=== PATIENT | female | born 1955 | race Caucasian/White ===

== ENCOUNTER 2016-05-12 13:27 | Outpatient (CLI) ==
--- NOTE | 2016-05-12 14:31 | DI ---
EXAM: Two views of the right hip HISTORY: Right hip pain with pain for 3 weeks. COMPARISON: None FINDINGS: The right hip demonstrates no cortical irregularity or displaced fracture. There is no ly tic or blastic lesion. The joint space is maintained. Limited views of the pelvis are normal. IMPRESSION: No acute abnormality or displaced fracture of the right hip.
== END 2016-05-12 13:28 | disposition home or self-care (01) ==
LOC: RAD 13:27
PROVIDERS: ATTEND Internal Medicine
DX: M25.551 Pain in right hip (principal)

== ENCOUNTER 2017-07-24 09:05 | Inpatient (IN) ==
--- NOTE | 2017-07-24 09:39 | CT ---
Exam: CT of the chest without intravenous contrast. Comparison: None available. Reason for exam: Cough and fever. FINDINGS: Image interpretation is limited by the lack of intravenous contrast administration. An air-fluid level is seen in the left maxillary sinus. The thyroid gland appears mildly heterogeneous. Patchy ground-glass nodularity is seen in the right upper, left upper, right middle lobes. The aorta is normal in course and caliber. The heart is not enlarged. No pneumothorax or pleural effusion. Degenerative disease is seen in the lower cervical and thoracic spine. Impression: 1. Patchy ground-glass nodularity in the right upper, left upper and right middle lobes. Imaging fin dings are consistent with infection and inflammation. Follow-up imaging is recommended to document r esolution. 2. Air-fluid level left maxillary sinus may represent sinus disease. 3. The thyroid gland is mildly heterogeneous. Ultrasound may be performed for further characterizat ion.
[2017-07-24] MEDS ORDERED: ROCEPHIN 1 GM in SODIUM CHLORIDE 50 ML IV STA ×2 (09:41→10:11)
[2017-07-24] MEDS ORDERED: ROCEPHIN ONE (09:45)
--- NOTE | 2017-07-24 09:45 | ED.PDOC ---
General ED Provider: Dr. GRAHAM GERMAIN-ER Chief Complaint: Fever Stated Complaint: i had some resp problems and dr dyer put my on antbx--im still coughing and congested and running a fever Time Seen by Physician: 09:10 Mode of Arrival: Walk-In Information Source: Patient, Family Exam Limitations: No limitations Primary Care Provider: BARB DYER Nursing and Triage Documentation Reviewed and Agree: Yes Reviewed sepsis parameters & appropriate labs ordered?: Yes System Inflammatory Response Syndrome: Not Applicable Sepsis Protocol: For patient's 13 years and over: Temp is 96.8 and below OR 101 and greater Pulse >90 BPM Resp >20/minute Acutely Altered Mental Status Are patient's symptoms suggestive of a new infection, such as: -Pneumonia -Skin, Soft Tissue -Endocarditis -UTI -Bone, Joint Infection -Implantable Device -Acute Abdominal Infection -Wound Infection -Meningitis -Blood Stream Catheter Infection -Unknown Respiratory Complaint Exam - Respiratory Complaint/Exam Onset/Duration: 2 weeks Symptoms Are: Still present Timing: Intermittent Initial Severity: Mild Current Severity: Mild Location: Nose, Chest Character: Reports: Productive cough Aggravating: Reports: URI Associated Signs and Symptoms: Reports: Fever, Chills, URI, Nasal congestion. Denies: Rapid breathing, Dyspnea, Chest pain, Pleuritic chest pain, Wheezing, Hemoptysis, Dizziness, Calf pain, Calf swelling, Edema, Hoarseness, Sinus discomfort, Vomiting, Sore throat, Weight loss, Decreased oral intake, Increased thirst, Increased appetite, Increased urination Related History: Reports: Similar episode History of Healthcare-Acquired Pneumonia: No Pseudomonas Risk Factors: Reports: None Tuberculosis Risk Factors: Reports: None Status Asthmaticus Risk Factors: Reports: None Home Oxygen Use: No Recent Stress Test: No Recent Echo/LV Function: No Current Antibiotic Use: No Current Asthma Medication Use: No Respiratory Distress: None Inadequate Respiratory Effort: No Dysphagia Present: No Stridor Present: No JVD Present: No Accessory Muscle Use: No Retractions: Not Present Diminished Breath Sounds: No Sinus Tenderness: None Grunting Respirations: No Kussmaul Respirations: No Differential Diagnoses: Pneumonia, Bronchitis Quality Indicators For Pneumonia: Blood Cultures-SCU admit, Antibiotics in 6hr- admit, SpO2 assessed, Empiric Antibiotic Rx, Vital signs, Mental status assessed Non-Traumatic Chest Pain Syncope: EKG Performed Review of Systems - Review Of Systems Constitutional: Reports: Chills, Fever, Weakness Eyes: Reports: No symptoms Ears, Nose, Mouth, Throat: Reports: No symptoms Respiratory: Reports: Cough, Short of air Cardiac: Reports: No symptoms GI: Reports: No symptoms : Reports: No symptoms Musculoskeletal: Reports: No symptoms Skin: Reports: No symptoms Neurological: Reports: No symptoms Endocrine: Reports: No symptoms Hematologic/Lymphatic: Reports: No symptoms All Other Systems: Reviewed and Negative Past Medical History - Past Medical History Previously Healthy: No Endocrine: Reports: Unknown Cardiovascular: Reports: Unknown Respiratory: Reports: Unknown Hematological: Reports: Unknown Gastrointestinal: Reports: Unknown Genitourinary: Reports: Unknown Neuro/Psych: Reports: Unknown Musculoskeletal: Reports: Unknown Cancer: Reports: Unknown Last Menstrual Period: n/a - Surgical History General Surgical History: Reports: Unknown - Family History Family History: Reports: Unknown - Social History Smoking Status: Former smoker Hx Substance Use: No Alcohol Screening: None Lives: With family - Immunizations Tetanus Shot up to Date: Yes Physical Exam - Physical Exam Appearance: Well-appearing Eyes: RAVI ENT: Ears normal, Nose normal, Oropharynx normal Neck: Supple Respiratory: Crackles, Rhonchi Cardiovascular: RRR, Pulses normal, No rub, No murmur GI/: Soft Musculoskeletal: Normal strength Skin: Warm Neurological: Sensation intact Psychiatric: Affect appropriate, Mood appropriate Interpretation - Radiology Interpretation Radiology Interpretation By: Radiologist Radiology Results: Positive Exam Interpreted: CT Scan - EKG Interpretation Time of EKG #1: 09:46 Rate: Normal Rhythm: Sinus Ectopy: None [place]: NL ST Segment: Normal Interpretation: nsr Physician Notification - Case Discussed Physician Notified: dr dyer Time of Notification: 10:04 Critical Care Note - Critical Care Note Total Time (mins): 0 Course - Course Hematology/Chemistry: 07/24/17 09:30 07/24/17 09:30 Orders, Labs, Meds: Lab Review 07/24/17 07/24/17 07/24/17 09:18 09:30 09:30 WBC 13.77 H RBC 3.89 L Hgb 12.4 Hct 37.3 MCV 95.9 MCH 31.9 H MCHC 33.2 RDW Coeff of Nabeel 12.2 Plt Count 304 Immature Gran % (Auto) 0.5 Neut % (Auto) 83.8 Lymph % (Auto) 8.8 L [place] % (Auto) 6.4 Eos % (Auto) 0.3 Baso % (Auto) 0.2 Immature Gran # (Auto) 0.1 Neut # (Auto) 11.5 H Lymph # (Auto) 1.2 [place] # (Auto) 0.9 Eos # (Auto) 0.0 Baso # (Auto) 0.0 Puncture Site Rb O2 Saturation 95.0 ABG pH 7.451 H ABG pCO2 32.5 L ABG pO2 70.0 L ABG HCO3 22.6 ABG Total CO2 24 ABG Base Excess -1 FiO2 % 21.0 Sodium 139 Potassium 3.6 Chloride 103 Carbon Dioxide 22 L Anion Gap 17.6 BUN 11 Creatinine 0.77 Estimated GFR (MDRD) 76.00 BUN/Creatinine Ratio 14.28 Glucose 116 H Calcium 10.1 Total Bilirubin 1.0 AST 46 H ALT 65 Alkaline Phosphatase 108 Total Protein 8.3 H Albumin 3.3 L Globulin 5.0 Albumin/Globulin Ratio 0.66 Influ A Molecular Assay Influ B Molecular Assay 07/24/17 09:35 WBC RBC Hgb Hct MCV MCH MCHC RDW Coeff of Nabeel Plt Count Immature Gran % (Auto) Neut % (Auto) Lymph % (Auto) [place] % (Auto) Eos % (Auto) Baso % (Auto) Immature Gran # (Auto) Neut # (Auto) Lymph # (Auto) [place] # (Auto) Eos # (Auto) Baso # (Auto) Puncture Site O2 Saturation ABG pH ABG pCO2 ABG pO2 ABG HCO3 ABG Total CO2 ABG Base Excess FiO2 % Sodium Potassium Chloride Carbon Dioxide Anion Gap BUN Creatinine Estimated GFR (MDRD) BUN/Creatinine Ratio Glucose Calcium Total Bilirubin AST ALT Alkaline Phosphatase Total Protein Albumin Globulin Albumin/Globulin Ratio Influ A Molecular Assay Negative by naat Influ B Molecular Assay Negative by naat Orders Category Date Time Status ABG DRAW REQUEST Stat CARDIO 07/24/17 09:18 Completed EKG-(ED ONLY) Stat CARDIO 07/24/17 09:18 Completed IV [ED IV/MEDIPORT/POWERPORT] .ONCE EMERGENCY 07/24/17 09:41 Active OXYGEN [ED APPLY O2] .ONCE EMERGENCY 07/24/17 09:59 Active ABG Stat LAB 07/24/17 09:18 Completed BLOOD CULTURE (ED ONLY) Stat LAB 07/24/17 09:30 Received CBC W/ AUTO DIFF Stat LAB 07/24/17 09:30 Completed COMPREHENSIVE METABOLIC PANEL Stat LAB 07/24/17 09:30 Completed FLU A/B MOLECULAR Stat LAB 07/24/17 09:35 Completed 0.9 % Sodium Chloride [Saline Flush] MEDS 07/24/17 09:41 Active 1 syr IVF PRN PRN Ceftriaxone Sodium [Rocephin] MEDS 07/24/17 09:45 Discontinued 1 gm .ROUTE .STK-MED ONE Ceftriaxone Sodium [Rocephin] 1 gm MEDS 07/24/17 09:41 Active 0.9 % Sodium Chloride [Sodium Chloride] [address] CHEST W/O CONTRAST Stat RADS 07/24/17 09:18 Completed Medications Generic Name Dose Route Start Last Admin Trade Name Freq PRN Reason Stop Dose Admin Ceftriaxone Sodium 1 gm/ 50 mls @ 75 mls/hr 07/24/17 09:41 07/24/17 09:57 Sodium Chloride IV 07/24/17 10:20 75 mls/hr ONCE STA Administration Sodium Chloride 1 syr 07/24/17 09:41 Saline Flush IVF PRN PRN To flush IV Vital Signs: Temp Pulse Resp BP Pulse Ox 07/24/17 09:05 98.7 F 105 H 20 143/110 H 90 L Departure - Departure Time of Disposition: 10:04 Disposition: ADMITTED INPATIENT Discharge Problem: Community acquired bacterial pneumonia Instructions: Pneumonitis (ED) Condition: Good Pt referred to PMD for follow-up: Yes IPMP verified?: No Allergies/Adverse Reactions: Allergies No Known Allergies Allergy (Verified 07/24/17 09:11) Home Medications: Ambulatory Orders 1 [No Reported Medications] 07/24/17 Disposition Discussed With: Patient, Family
[2017-07-24] MEDS ORDERED: TYLENOL PO PRN (10:06)
[2017-07-24] MEDS ORDERED: TESSALON PERLES PO PRN (10:10)
[2017-07-24] MEDS: DUONEB NEB SCH ×2 (11:17→17:03)
[2017-07-24 12:27] VITALS: BMI 22.3
[2017-07-24] MEDS: MUCINEX PO SCH ×2 (15:14→20:32)
[2017-07-24] MEDS: LOVENOX SUBCUT SCH (15:15)
[2017-07-24] MEDS: DOXY-100 100 MG in SODIUM CHLORIDE 100 ML IV SCH ×2 (15:19→20:32)
[2017-07-24] MEDS: SODIUM CHLORIDE 1,000 ML IV SCH (15:19)
[2017-07-24] MEDS: SOLU-MEDROL 40 MG IVP SCH ×2 (15:26→21:32)
[2017-07-24] MEDS ORDERED: NORCO 7.5-325 ONE (20:08)
[2017-07-24] MEDS ORDERED: NON-FORMULARY MEDICATION (Hydrocodone Bit/Acetaminophen 1 TAB) PO SCH (21:00)
[2017-07-25] MEDS: DUONEB NEB SCH ×5 (00:53→23:30)
[2017-07-25] MEDS: ROCEPHIN 1 GM in SODIUM CHLORIDE 50 ML IV SCH (09:22)
[2017-07-25] MEDS: SOLU-MEDROL 40 MG IVP SCH ×2 (09:25→20:42)
[2017-07-25] MEDS: MUCINEX PO SCH ×2 (09:25→20:41)
[2017-07-25] MEDS: LEXAPRO PO SCH (09:26)
[2017-07-25] MEDS: NORCO 7.5-325 PO SCH ×2 (09:26→20:41)
[2017-07-25] MEDS: ZOCOR PO SCH (09:26)
[2017-07-25] MEDS: LOVENOX SUBCUT SCH (09:26)
[2017-07-25] MEDS: DOXY-100 100 MG in SODIUM CHLORIDE 100 ML IV SCH ×2 (10:12→20:41)
[2017-07-25] MEDS ORDERED: TORADOL IVP PRN (17:40)
[2017-07-25] MEDS: SODIUM CHLORIDE 1,000 ML IV SCH (20:45)
[2017-07-26] MEDS: DUONEB NEB SCH ×4 (05:20→23:25)
[2017-07-26] MEDS: ROCEPHIN 1 GM in SODIUM CHLORIDE 50 ML IV SCH (09:47)
[2017-07-26] MEDS: LEXAPRO PO SCH (09:47)
[2017-07-26] MEDS: ZOCOR PO SCH (09:49)
[2017-07-26] MEDS: SOLU-MEDROL 40 MG IVP SCH ×2 (09:50→20:28)
[2017-07-26] MEDS: NORCO 7.5-325 PO SCH ×2 (09:51→20:28)
[2017-07-26] MEDS: LOVENOX SUBCUT SCH (09:51)
[2017-07-26] MEDS: MUCINEX PO SCH ×2 (09:51→20:28)
--- NOTE | 2017-07-26 10:07 | PCM.PROG ---
Attending Provider: ATTENDING PROVIDER: Dr. BARB LARIOS This patient is seen with Luci Stark, Nurse Practitioner. DATE OF SERVICE: 07/26/17 SUBJECTIVE: This 61 year old WHITE/ F was hospitalized 07/24/17. The patient is sitting in bed, alert. She would like to go home. She is still coughing. REVIEW OF SYSTEMS: CONSTITUTIONAL: No night sweats. No fatigue, malaise, lethargy. No fever or chills. HEENT: Eyes: No visual changes. No eye pain. No eye discharge. ENT: No runny nose. No epistaxis. No sinus pain. No odynophagia. No congestion. RESPIRATORY: Positive for cough and congestion. No hemoptysis. No shortness of breath. CARDIOVASCULAR: No angina symptoms. No CHF symptoms. No atypical chest pain for CAD. No palpitations. No orthopnea.. GASTROINTESTINAL: No abdominal pain. No nausea or vomiting. No diarrhea or constipation. No hematemesis. No hematochezia. GENITOURINARY: No urgency. No frequency. No dysuria. No hematuria. No obstructive symptoms. No discharge. No pain. No significant abnormal bleeding. MUSCULOSKELETAL: No musculoskeletal pain; no joint swelling. NEUROLOGICAL: Awake, alert, oriented to time, place and person. No headache. No neck pain. No syncope. No seizures. No dizziness. PSYCHIATRIC: Not anxious. No depression. No suicidal thoughts. No homicidal thoughts. SKIN: No rash. No lesions. No wounds. ENDOCRINE: No unexplained weight loss. No weight gain. HEMATOLOGIC/LYMPHATIC: No anemia. No purpura. No petechiae. No prolonged or excessive bleeding. No palpable lymph nodes. PHYSICAL EXAMINATION: GENERAL: The patient is awake, alert and oriented, sitting in bed in no distress. VITAL SIGNS: Temperature 98.5 F, Pulse 93, Respiratory Rate 20, BP 126/73, Pulse Ox 93% HEENT: Head normocephalic, atraumatic. Eyes: Extraocular muscles are intact. Pupils are equal, round and reactive to light and accommodation. Ears: No lesions. Nose appeared normal. Throat: No exudate or erythema. NECK: Supple. No JVD, no carotid bruit. No lymphadenopathy or thyromegaly. LUNGS: Rales bilaterally. Percussion note normal. Chest symmetrical. HEART: S1, S2, no S3. No murmurs. No cyanosis or clubbing. No ascites. Pulses: Dorsalis pedis and posterior tibial pulses +1 to +2 both sides. ABDOMEN: Soft. Non-tender. Bowel sounds active. No CVA tenderness. No mass felt. EXTREMITIES: No edema. Full range of motion of all extremities, equal. NEUROLOGIC: No focal deficit. Cranial nerves II through XII are grossly intact. No headache, no double vision or headache. SKIN: Not dry. Intact. Turgor-normal. LYMPHATIC: No palpable lymph nodes/no lymphedema. MUSCULOSKELETAL: Normal joints with no swelling. Muscle tone is normal. LAB REVIEW: 07/26/17 04:30 07/26/17 04:30 07/26/17 04:30: Sodium 144, Potassium 4.4, Chloride 110 H, Carbon Dioxide 21 L, Anion Gap 17.4, BUN 21 H, Creatinine 0.72, Estimated GFR (MDRD) 83.00, BUN/ Creatinine Ratio 29.16, Glucose 134 H, Calcium 9.7, Total Bilirubin 0.2, AST 26 , ALT 47, Alkaline Phosphatase 97, Total Protein 6.7, Albumin 2.7 L, Globulin 4.0, Albumin/Globulin Ratio 0.68 07/26/17 04:30: WBC 16.93 H D, RBC 3.28 L, Hgb 10.5 L, Hct 31.9 L, MCV 97.3, MCH 32.0 H, MCHC 32.9, RDW Coeff of Nabeel 12.3, Plt Count 278 D, Immature Gran % (Auto) 0.8, Neut % (Auto) 91.9, Lymph % (Auto) 5.0 L, [place] % (Auto) 2.2, Eos % ( Auto) 0.0, Baso % (Auto) 0.1, Immature Gran # (Auto) 0.1, Neut # (Auto) 15.5 H, Lymph # (Auto) 0.9, [place] # (Auto) 0.4, Eos # (Auto) 0.0, Baso # (Auto) 0.0 ASSESSMENT: 1. BILATERAL PNEUMONIA 2. ANEMIA 3. ELEVATED PROTEIN WITH LOW ALBUMIN PLAN: 1. REPEAT CHEST X-RAY 2. PROTEIN FOR ELECTROPHORESIS IN URINE FOR BENCE-LOZANO PROTEIN IN URINE Plan and coordination of the patient's care discussed in the presence of Plate Painter and nurse. CONDITION: Stable SCRIBED BY: BARBY PAUL, Armored Machine Operator scribed while in presence of service performed by Dr. Larios/Luci Stark APRN on 07/26/17 ([id number])
[2017-07-26] MEDS: DOXY-100 100 MG in SODIUM CHLORIDE 100 ML IV SCH ×2 (11:14→20:27)
--- NOTE | 2017-07-26 15:10 | DI ---
EXAM: CHEST FRONTAL AND LATERAL VIEWS HISTORY: Pneumonia, follow-up. COMPARISON: None FINDINGS: Heart size and mediastinal contour remain within normal limits. There is diffuse, chroni c appearing interstitial accentuation. No acute infiltrates are seen. No vascular congestion. Ther e is no consolidation, visible pleural fluid or pneumothorax. Bones reveal no acute fracture. IMPRESSION: No acute cardiopulmonary process.
[2017-07-27] MEDS: DUONEB NEB SCH ×2 (05:05→11:12)
[2017-07-27] MEDS: SODIUM CHLORIDE 1,000 ML IV SCH (07:32)
[2017-07-27] MEDS: DOXY-100 100 MG in SODIUM CHLORIDE 100 ML IV SCH (08:48)
[2017-07-27] MEDS: SOLU-MEDROL 40 MG IVP SCH (08:48)
[2017-07-27] MEDS: NORCO 7.5-325 PO SCH (08:49)
[2017-07-27] MEDS: LEXAPRO PO SCH (08:49)
[2017-07-27] MEDS: ZOCOR PO SCH (08:49)
[2017-07-27] MEDS: MUCINEX PO SCH (08:49)
[2017-07-27] MEDS: LOVENOX SUBCUT SCH (08:50)
[2017-07-27 09:45] VITALS: BP 138/71; TEMP 97.6
[2017-07-27] MEDS: ROCEPHIN 1 GM in SODIUM CHLORIDE 50 ML IV SCH (10:31)
--- NOTE | 2017-07-27 11:00 | CM.DICTOOL ---
ADMISSION: 07/24/17 10:31 DISCHARGE: JULY 27, 2017 DATE OF SERVICE: 07/27/17 FINAL DIAGNOSIS COMMUNITY ACQUIRED PNEUMONIA, BILATERAL DYSLIPIDEMIA DEPRESSION OSTEOARTHRITIS DEGENERATIVE DISC DISEASE; CERVICAL AND THORACIC SPINE ANEMIA KIRA, BSO APPENDECTOMY LAMINECTOMY L5-S1 LAST VITALS Temp Pulse Resp BP Pulse Ox 97.6 F 85 14 138/71 96 07/27/17 09:45 07/27/17 09:45 07/27/17 09:45 07/27/17 09:45 07/27/17 09:45 TAKE THESE MEDICATIONS Hydrocodone Bitart/Acetaminophen ([place] 7.5-325) 1 tab PO BID [facility] Last Admin: 07/27/17 08:49 Dose: 1 tab Escitalopram Oxalate (Lexapro) 10 mg PO DAILY [facility] Last Admin: 07/27/17 08:49 Dose: 10 mg Simvastatin (Zocor) 40 mg PO DAILY [facility] Last Admin: 07/27/17 08:49 Dose: 40 mg Keflex 500 mg PO BID Last Admin: Doxycycline 50 mg PO BID Last Admin: Prednisone 10 mg PO DAILY Last Admin: ALLERGIES No Known Allergies Allergy (Verified 07/24/17 09:11) NEW PRESCRIPTIONS: Keflex 500 mg BID for 5 days Prednisone 10 mg DAILY for 5 days Doxycycline 50 mg BID for 7 days SMOKING: Not Applicable DISEASE SPECIFIC EDUCATION: Pneumonia Prescriptions Activity, Nutrition Outpatient testing/Appointment LAB REVIEW: 07/27/17 04:30 07/27/17 04:30 07/27/17 08:30: Vitamin B12 1321 H 07/27/17 08:30: Iron 53, TIBC 266, % Saturation 20, Unsat Iron Binding 213, Ferritin 93.84, Folate 17.0 07/27/17 08:30: Reticulocyte % (Auto) 1.48, Absolute Retic 0.0494, Retic Hgb Equivalent 33.5 07/27/17 04:30: Sodium 143, Potassium 4.2, Chloride 110 H, Carbon Dioxide 22 L, Anion Gap 15.2, BUN 17, Creatinine 0.70, Estimated GFR (MDRD) 85.00, BUN/ Creatinine Ratio 24.28, Glucose 116 H, Calcium 9.5, Total Bilirubin 0.3, AST 43 H, ALT 57, Alkaline Phosphatase 91, Total Protein 6.5, Albumin 2.8 L, Globulin 3.7, Albumin/Globulin Ratio 0.76 07/27/17 04:30: WBC 11.28 H D, RBC 3.26 L, Hgb 10.3 L, Hct 31.2 L, MCV 95.7, MCH 31.6 H, MCHC 33.0, RDW Coeff of Nabeel 12.3, Plt Count 274, Immature Gran % ( Auto) 0.5, Neut % (Auto) 87.2, Lymph % (Auto) 9.0 L, [place] % (Auto) 3.2, Eos % ( Auto) 0.0, Baso % (Auto) 0.1, Immature Gran # (Auto) 0.1, Neut # (Auto) 9.8 H, Lymph # (Auto) 1.0, [place] # (Auto) 0.4, Eos # (Auto) 0.0, Baso # (Auto) 0.0 PLAN: DISCHARGE HOME DIET: REGULAR TOLERATED, GOOD NUTRITION AND ADEQUATE LIQUIDS ARE ENCOURAGED ACTIVITY: GRADUALLY RESUME TOLERATED REST MUCH POSSIBLE TAKE MEDICATIONS LISTED ON NURSING DISCHARGE INFORMATION SHEET NO CHANGES HAVE BEEN MADE TO YOUR CURRENT HOME MEDICATIONS NO WORK UNTIL RELEASED BY DR. EDMOND AN APPOINTMENT IS SCHEDULED WITH DR. EDMOND ON JULY 29 AT 10:45 AM AN APPOINTMENT IS SCHEDULED FOR AN OUTPATIENT PULMONARY FUNCTION TEST ON TuesdayAUGUST 02 AT 9 AM MRS. CORONEL IS ALERT AND ORIENTED X 3. SHE IS INDEPENDENT WITH ACTIVITIES OF DAILY LIVING. SHE IS AMBULATORY WITHOUT USE OF AN ASSISTIVE DEVICE OR ASSISTANCE FROM NURSING. SHE IS CONTINENT OF BOWEL AND BLADDER. MEAL INTAKES HAVE BEEN GOOD AT 15-100%. COLORING IS PALE, BUT SKIN IS INTACT AND FREE OF DECUBITUS ULCERS, RASHES OR IRRITATION. MRS. CORONEL HAS NO EXISTING DURABLE MEDICAL EQUIPMENT AT HOME. BARB EDMOND MD
--- NOTE | 2017-07-27 11:44 | PCM.PROG ---
Attending Provider: ATTENDING PROVIDER: Dr. BARB EDMOND DATE OF SERVICE: 07/27/17 SUBJECTIVE: This 61 year old WHITE/ F was hospitalized 07/24/17 with pneumonia. The patient's condition is improved. She is up and about. Coughing is much less. Chest x-ray normal. REVIEW OF SYSTEMS: CONSTITUTIONAL: Weakness. No night sweats. No malaise, lethargy. No fever or chills. HEENT: Eyes: No visual changes. No eye pain. No eye discharge. ENT: No runny nose. No epistaxis. No sinus pain. No odynophagia. No congestion. RESPIRATORY: Mild cough. No congestion. No hemoptysis. No shortness of breath. CARDIOVASCULAR: No angina symptoms. No CHF symptoms. No atypical chest pain for CAD. No palpitations. No orthopnea.. GASTROINTESTINAL: No abdominal pain. No nausea or vomiting. No diarrhea or constipation. No hematemesis. No hematochezia. GENITOURINARY: No urgency. No frequency. No dysuria. No hematuria. No obstructive symptoms. No discharge. No pain. No significant abnormal bleeding. MUSCULOSKELETAL: No musculoskeletal pain; no joint swelling. NEUROLOGICAL: Awake, alert, oriented to time, place and person. No headache. No neck pain. No syncope. No seizures. No dizziness. PSYCHIATRIC: Not anxious. No depression. No suicidal thoughts. No homicidal thoughts. SKIN: No rash. No lesions. No wounds. ENDOCRINE: No unexplained weight loss. No weight gain. HEMATOLOGIC/LYMPHATIC: No anemia. No purpura. No petechiae. No prolonged or excessive bleeding. No palpable lymph nodes. PHYSICAL EXAMINATION: GENERAL: The patient is awake, alert and oriented, sitting in bed in no distress. VITAL SIGNS: Temperature 98.6 F, Pulse 78, Respiratory Rate 16, BP 130/79, Pulse Ox 94% HEENT: Head normocephalic, atraumatic. Eyes: Extraocular muscles are intact. Pupils are equal, round and reactive to light and accommodation. Ears: No lesions. Nose appeared normal. Throat: No exudate or erythema. NECK: Supple. No JVD, no carotid bruit. No lymphadenopathy or thyromegaly. LUNGS: Decreased breath sounds. Clear to auscultation. Percussion note normal. Chest symmetrical. HEART: S1, S2, no S3. No murmurs. No cyanosis or clubbing. No ascites. Pulses: Dorsalis pedis and posterior tibial pulses +1 to +2 both sides. ABDOMEN: Soft. Non-tender. Bowel sounds active. No CVA tenderness. No mass felt. EXTREMITIES: No edema. Full range of motion of all extremities, equal. NEUROLOGIC: No focal deficit. Cranial nerves II through XII are grossly intact. No headache, no double vision or headache. SKIN: Warm and dry. Intact. Turgor-normal. LYMPHATIC: No palpable lymph nodes/no lymphedema. MUSCULOSKELETAL: Normal joints with no swelling. Muscle tone is normal. LAB REVIEW: 07/27/17 04:30 07/27/17 04:30 07/27/17 04:30: Sodium 143, Potassium 4.2, Chloride 110 H, Carbon Dioxide 22 L, Anion Gap 15.2, BUN 17, Creatinine 0.70, Estimated GFR (MDRD) 85.00, BUN/ Creatinine Ratio 24.28, Glucose 116 H, Calcium 9.5, Total Bilirubin 0.3, AST 43 H, ALT 57, Alkaline Phosphatase 91, Total Protein 6.5, Albumin 2.8 L, Globulin 3.7, Albumin/Globulin Ratio 0.76 07/27/17 04:30: WBC 11.28 H D, RBC 3.26 L, Hgb 10.3 L, Hct 31.2 L, MCV 95.7, MCH 31.6 H, MCHC 33.0, RDW Coeff of Nabeel 12.3, Plt Count 274, Immature Gran % ( Auto) 0.5, Neut % (Auto) 87.2, Lymph % (Auto) 9.0 L, [place] % (Auto) 3.2, Eos % ( Auto) 0.0, Baso % (Auto) 0.1, Immature Gran # (Auto) 0.1, Neut # (Auto) 9.8 H, Lymph # (Auto) 1.0, [place] # (Auto) 0.4, Eos # (Auto) 0.0, Baso # (Auto) 0.0 ASSESSMENT: Please see below. 1. Pneumonia resolved by chest x-ray 2. Chronic lung disease (stopped smoking 10 years ago) 3. DJD spine history, on narcotics 4. Depression controlled with Lexapro 5. Dyslipidemia on Zocor with no side effects 6. Rhabdomyolysis. Discussed with the patient the symptoms The patient will have serum electrophoresis and Bence-Garcia because of abnormal protein. PLAN: 1. Anemia profile 2. PFT 3. Keflex 500 mg b.i.d. for 5 days 4. Doxycycline 50 mg one b.i.d. for 7 days 5. Prednisone 10 mg daily times 5 days 6. Discharge home 7. Will see in office on Tuesday, no work until released by Dr. Edmond Plan and coordination of the patient's care discussed in the presence of Production Administrative Assistant and nurse. CONDITION: Stable SCRIBED BY: BARBY PAUL Bolt Sorter scribed while in presence of service performed by Dr. BARB EDMOND on 07/27/17 ([id number])
--- NOTE | 2017-07-27 13:38 | HP ---
DATE OF SERVICE: 07/24/17 HISTORY OF PRESENT ILLNESS: 61-year-old white female who is a long-term smoker. She had called to the office last week for cough and congestion, was placed on oral antibiotics and Prednisone. She presented and claims to have been running a fever off and on for one week and still congested. PAST MEDICAL HISTORY: Osteoarthritis Degenerative disk disease Dyslipidemia History of smoking Anxiety Depression PAST SURGICAL HISTORY: No past surgical history to report. REVIEW OF SYSTEMS: CONSTITUTIONAL: Positive for fever, chills. No night sweats. No fatigue, malaise, lethargy. HEENT: Eyes: No visual changes. No eye pain. No eye discharge. ENT: No runny nose. No epistaxis. No sinus pain. No sore throat. No odynophagia. No ear pain. No congestion. RESPIRATORY: Positive for cough, wheezing, congestion. No hemoptysis. No shortness of breath. CARDIOVASCULAR: No angina symptoms. No CHF symptoms. No atypical chest pain for CAD. No palpitations. No orthopnea. GASTROINTESTINAL: No abdominal pain. No nausea or vomiting. No diarrhea or constipation. No hematemesis. No hematochezia. GENITOURINARY: No urgency. No frequency. No dysuria. No hematuria. No obstructive symptoms. No discharge. No pain. No significant abnormal bleeding. MUSCULOSKELETAL: No musculoskeletal pain. No joint swelling. No arthritis. NEUROLOGICAL: No headache. No neck pain. No syncope. No seizures. No dizziness. PSYCHIATRIC: Not anxious. No depression. No suicidal thoughts. No homicidal thoughts. SKIN: No rash. No lesions. No wounds. ENDOCRINE: No unexplained weight loss. No weight gain. HEMATOLOGIC/LYMPHATIC: No anemia. No purpura. No petechiae. No prolonged or excessive bleeding. No palpable lymph nodes. PERSONAL/FAMILY/SOCIAL HISTORY: Family history - none significant. Social History: She is a former smoker. She lives at home with her family. She has a disabled son with cerebral palsy that she helps take care of. She is . No alcohol or ilicit drug use. She currently still works at the [employer]. MEDICATIONS: (AT DISCHARGE) Simvastatin 40 mg p.o. daily Escitaloprim 10 mg one tab p.o. daily Lortab 7.5-500 one tab p.o. b.i.d. Keflex 500 mg p.o. b.i.d. Prednisone 10 mg p.o. daily with meal Doxycycline 50 mg p.o. b.i.d. ALLERGIES: NKDA PHYSICAL EXAMINATION: VITAL SIGNS: Temperature 98.5, pulse 100, BP 111/73, respiratory rate 20, 02 sat 97% on room air. HEENT: Head normocephalic, atraumatic. Eyes: Extraocular muscles are intact. Pupils are equal, round and reactive to light and accommodation. Ears: No lesions. Nose appeared normal. Throat: No exudate or erythema. NECK: Supple. No JVD, no carotid bruit. No lymphadenopathy or thyromegaly. LUNGS: Dimnished breath sounds bilaterally with wheezing bilaterally. Clear to auscultation. Percussion note normal. Chest symmetrical. HEART: S1, S2, no S3. No murmurs. No cyanosis or clubbing. No ascites. Pulses: Dorsalis pedis and posterior tibial pulses +1 to +2 both sides. ABDOMEN: Soft. Nontender. Bowel sounds active. No CVA tenderness. No mass felt. EXTREMITIES: No edema. Full range of motion of all extremities, equal. NEUROLOGIC: No focal deficit. Cranial nerves II through XII are grossly intact. No headache, no double vision or headache. SKIN: Not dry. Intact. Turgor - normal. LYMPHATIC: No palpable lymph nodes/no lymphedema. MUSCULOSKELETAL: Normal joints with no swelling. Muscle tone is normal. CT scan of the chest revealed right upper and right middle as well as left upper lobe pneumonia. White count 13.77, hemoglobin 12.4, hematocrit 37.3, platelets 304. Sodium 139, potassium 3.6, BUN 11, creatinine 0.77, glucose 116. ABGs on room air 02 sat 95, pH 7.451, pc02 32.5, p02 70, bicarb 22.6, total c02 24, base excess of +1. AST 46, ALT 65, alkaline phoshatase 108. Influenza A and B are both negative. ASSESSMENT: 1. BILATERAL PNEUMONIA 2. COPD PLAN: 1. Admit 2. Blood cultures 3. Routine telemetry orders 4. Xopenex neb treatments q.6hr p.r.n. 5. Tylenol as needed for fever 6. Continue home medications 7. Rocephin 1 gm IV daily 8. Doxycycline 100 mg IV q.12hr 9. Normal Saline IV 40 cc/hr 10. Solu-Medrol 40 mg IV q.12hr 11. Tessalon Perles as needed t.i.d. for coughing 12. 02 as needed. 13. Regular diet 14. Will follow closely TIME SPENT: More than 70 minutes. MTDD
--- NOTE | 2017-08-01 09:44 | PN ---
DATE OF SERVICE: 07/24/17 SUBJECTIVE: The patient was hospitalized through the emergency room with complaint of cough and congestion. The patient was treated with antibiotics steroids a week ago with practically no improvement. The patient continued to cough and now developed fever and chills. CT scan of the chest showed pneumonia. When I examined the patient in the evening around 6:30pm. the patient was feeling better. She has been antibiotics, steroids and NEBS treatment. PHYSICAL EXAMINATION: HEENT: Head normocephalic, atraumatic. Eyes: Extraocular muscles are intact. Pupils are equal, round and reactive to light and accommodation. Ears: No lesions. Nose appeared normal. Throat: No exudate or erythema. NECK: Supple. No JVD, no carotid bruit. No lymphadenopathy or thyromegaly. LUNGS: Decreased breath sounds with a few crepitations, dry at the bases. Percussion note normal. Chest symmetrical. HEART: S1, S2, no S3. No murmurs. No cyanosis or clubbing. No ascites. Pulses: Dorsalis pedis and posterior tibial pulses +1 to +2 both sides. ABDOMEN: Soft. Nontender. Bowel sounds active. No CVA tenderness. No mass felt. EXTREMITIES: No edema. Full range of motion of all extremities, equal. NEUROLOGIC: No focal deficit. Cranial nerves II through XII are grossly intact. No headache, no double vision or headache. SKIN: Not dry. Intact. Turgor - normal. LYMPHATIC: No palpable lymph nodes/no lymphedema. MUSCULOSKELETAL: Normal joints with no swelling. Muscle tone is normal. CONDITION: Stable. TIME SPENT: More than 30 minutes. Plan and coordination of the patient's care discussed in the presence of nurse. SHERIF
--- NOTE | 2017-08-03 07:44 | PN ---
DATE OF SERVICE: 07/25/17 SUBJECTIVE: The patient was seen and examined with Nurse Practitioner. The patient was admitted with pneumonia. The patient's pneumonia seems to be improving and she is up and about. The patient's condition is improving with antibiotics, steroids and NEBS treatment. REVIEW OF SYSTEMS: CONSTITUTIONAL: No night sweats. Weak and fatigue. No fever or chills. HEENT: Eyes: No visual changes. No eye pain. No eye discharge. ENT: No runny nose. No epistaxis. No sinus pain. No sore throat. No odynophagia. No congestion. RESPIRATORY: Coughing much less, no congestion. No hemoptysis. No shortness of breath. CARDIOVASCULAR: No angina symptoms. No CHF symptoms. No atypical chest pain for CAD. No palpitations. No orthopnea. GASTROINTESTINAL: No abdominal pain. No nausea or vomiting. No diarrhea or constipation. No hematemesis. No hematochezia. GENITOURINARY: No urgency. No frequency. No dysuria. No hematuria. No obstructive symptoms. No discharge. No pain. No significant abnormal bleeding. MUSCULOSKELETAL: No musculoskeletal pain; no joint swelling. NEUROLOGICAL: No headache. No neck pain. No syncope. No seizures. No dizziness. PSYCHIATRIC: Not anxious. No depression. No suicidal thoughts. No homicidal thoughts. SKIN: No rash. No lesions. No wounds. ENDOCRINE: No unexplained weight loss. No weight gain. HEMATOLOGIC/LYMPHATIC: No anemia. No purpura. No petechiae. No prolonged or excessive bleeding. No palpable lymph nodes. PHYSICAL EXAMINATION: HEENT: Head normocephalic, atraumatic. Eyes: Extraocular muscles are intact. Pupils are equal, round and reactive to light and accommodation. Ears: No lesions. Nose appeared normal. Throat: No exudate or erythema. NECK: Supple. No JVD, no carotid bruit. No lymphadenopathy or thyromegaly. LUNGS: Few crepitations at the bases. Percussion note normal. Chest symmetrical. HEART: S1, S2, no S3. No murmurs. No cyanosis or clubbing. No ascites. Pulses: Dorsalis pedis and posterior tibial pulses +1 to +2 both sides. ABDOMEN: Soft. Nontender. Bowel sounds active. No CVA tenderness. No mass felt. EXTREMITIES: No edema. Full range of motion of all extremities, equal. NEUROLOGIC: No focal deficit. Cranial nerves II through XII are grossly intact. No headache, no double vision or headache. SKIN: Not dry. Intact. Turgor - normal. LYMPHATIC: No palpable lymph nodes/no lymphedema. MUSCULOSKELETAL: Normal joints with no swelling. Muscle tone is normal. TIME SPENT: More than 30 minutes. Plan and coordination of the patient's care discussed in the presence of nurse. SHERIF
--- NOTE | 2017-08-03 07:56 | PN ---
DATE OF SERVICE: 07/26/17 SUBJECTIVE: The patient was seen and examined with Nurse Practitioner. PHYSICAL EXAMINATION: HEENT: Head normocephalic, atraumatic. Eyes: Extraocular muscles are intact. Pupils are equal, round and reactive to light and accommodation. Ears: No lesions. Nose appeared normal. Throat: No exudate or erythema. NECK: Supple. No JVD, no carotid bruit. No lymphadenopathy or thyromegaly. LUNGS: Decreased breath sounds with few creps. Clear to auscultation. Percussion note normal. Chest symmetrical. HEART: S1, S2, no S3. No murmurs. No cyanosis or clubbing. No ascites. Pulses: Dorsalis pedis and posterior tibial pulses +1 to +2 both sides. ABDOMEN: Soft. Nontender. Bowel sounds active. No CVA tenderness. No mass felt. EXTREMITIES: No edema. Full range of motion of all extremities, equal. NEUROLOGIC: No focal deficit. Cranial nerves II through XII are grossly intact. No headache, no double vision or headache. SKIN: Not dry. Intact. Turgor - normal. LYMPHATIC: No palpable lymph nodes/no lymphedema. MUSCULOSKELETAL: Normal joints with no swelling. Muscle tone is normal. PLAN: 1. Repeat the chest x-ray 2. The patient will be continued on antibiotics 3. The patient's albumin in high and globulin is low. Low protein electrophoresis and Bence-Garcia Protein in the urine. TIME SPENT: More than 30 minutes. Plan and coordination of the patient's care discussed in the presence of nurse. SHERIF
--- NOTE | 2017-08-03 08:09 | DS ---
DATE OF SERVICE: 07/27/17 FINAL DIAGNOSIS: 1. Community acquired pneumonia, bilateral 2. Dyslipidemia 3. Depression 4. Osteoarthritis 5. Degenerative disc disease, cervical and thoracic spine 6. Anemia 7. KIRA, BSO 8. Appendectomy 9. Laminectomy L5-S1 LAST VITALS: Temperature 97.6, pulse 85, respiratory rate 14, blood pressure 138/71 and pulse ox 96%. DISCHARGE INSTRUCTIONS: Discharge home. Take medications as listed on nursing discharge information sheet. No changes have been made to current home medications. No work until released by Dr. Larios. An appointment is scheduled with Dr. Larios on July 29 at 10:45am. An appointment is scheduled for outpatient pulmonary function test on August 02 at 9am. MEDICATIONS AT DISCHARGE: [place] 7.5-325 one tablet PO twice a day Lexapro 10mg Po daily Zocor 40mg Po daily Keflex 500mg PO twice a day Doxycycline 50mg PO twice a day Prednisone 10mg PO daily ALLERGIES: No known allergies NEW PRESCRIPTIONS: Keflex 500mg twice a day for 5 days Prednisone 10mg daily for 5 days Doxycycline 50mg twice a day for 7 days DIET INSTRUCTIONS: Regular as tolerated, good nutrition and adequate liquids are encouraged. ACTIVITY: Gradually resume as tolerated. Rest as much as possible. SMOKING: N/A DISEASE SPECIFIC EDUCATION: Pneumonia Prescriptions Activity, nutrition Outpatient testing/Appointment HOSPITAL COURSE: 61 year old white female hospitalized with pneumonia. The patient was treated with antibiotics and steroids for 7 days prior to hospitalization. The patient during the stay in the hospital was treated with Doxycycline and Rocephin. The patient's condition improved. Chest x-ray showed complete clearance of her pneumonia. The patient had mild wheeze and she was unable to perform PFT. That will be done as outpatient. The patient has chronic anemia. She is strongly advised to undergo colonoscopy which she has declined so far. The patient was also given steroid during the stay in the hospital. On discharge she was given Doxycycline, Keflex and steroids. CONDITION: Stable. TIME SPENT: More than 60 minutes. MTDD
--- NOTE | 2017-08-03 08:10 | PN ---
07/24/17: Level 5 07/25/17: Intermediate 07/26/17: Intermediate 07/27/17: D as in discharge MTDD
== END 2017-07-27 11:55 | disposition home or self-care (01) | DRG 194 ==
LOC: ED 09:05 → MEDSURG A 10:31
PROVIDERS: ADMIT Internal Medicine; ATTEND Internal Medicine
DX: J18.9 Pneumonia, unspecified organism (principal); M62.82 Rhabdomyolysis; R06.02 Shortness of breath; R50.9 Fever, unspecified; R77.0 Abnormality of albumin; R77.8 Other specified abnormalities of plasma proteins; D50.0 Iron deficiency anemia secondary to blood loss (chronic); E78.5 Hyperlipidemia, unspecified; F32.9 Major depressive disorder, single episode, unspecified; M19.90 Unspecified osteoarthritis, unspecified site; M50.30 Other cervical disc degeneration, unspecified cervical region; M51.34 Other intervertebral disc degeneration, thoracic region; F17.210 Nicotine dependence, cigarettes, uncomplicated; Z79.891 Long term (current) use of opiate analgesic; Z79.899 Other long term (current) drug therapy
CPT/HCPCS: 36415; 80053; 81050; 82607; 82728; 82746; 82803; 83540; 83550; 84165; 84466; 85025; 85045; 87040; 87502; 93005; 93010; 94640; 96365; 99284

== ENCOUNTER 2018-06-30 06:43 | Emergency (ER) ==
[2018-06-30 06:55] VITALS: BP 154/87; TEMP 98.4; BMI 22.8
--- NOTE | 2018-06-30 08:19 | CT ---
Exam: CT of the chest without intravenous contrast. Comparison: 07/24/2017. Reason for exam: Cough. FINDINGS: Patchy ground-glass opacities are seen throughout both lungs with nodular consolidations i n both apices and the right lung base. No pneumothorax or pleural effusion. The heart is not enlarged. No pneumothorax. The thyroid appears grossly unremarkable. The aorta is normal in course and caliber. The heart is not enlarged. Image interpretation is limited by the lack of intravenous contrast. No suspicious appearing osteoblastic or osteolytic lesions. Impression: Patchy ground-glass nodularity and nodular consolidations are seen in both apices and the right lung base. Findings are consistent with multi focal pneumonia/atypical infection. Follow-up imaging is r ecommended as neoplasia cannot be completely ruled out.
--- NOTE | 2018-06-30 10:02 | ED.PDOC ---
General ED Provider: Dr. CHAUNCEY FONTANEZ Chief Complaint: Cough Stated Complaint: flu like symptoms mainly cough Time Seen by Physician: 07:00 (no resp distress ) Mode of Arrival: Walk-In Information Source: Patient Exam Limitations: No limitations Primary Care Provider: BARB EDMOND Nursing and Triage Documentation Reviewed and Agree: Yes Does patient meet sepsis criteria?: No System Inflammatory Response Syndrome: Not Applicable Sepsis Protocol: For patient's 13 years and over: Temp is 96.8 and below OR 101 and greater Pulse >90 BPM Resp >20/minute Acutely Altered Mental Status Are patient's symptoms suggestive of a new infection, such as: -Pneumonia -Skin, Soft Tissue -Endocarditis -UTI -Bone, Joint Infection -Implantable Device -Acute Abdominal Infection -Wound Infection -Meningitis -Blood Stream Catheter Infection -Unknown Respiratory Complaint Exam - Respiratory Complaint/Exam Onset/Duration: 3 days Symptoms Are: Resolved Initial Severity: Mild Current Severity: None Location: Throat, Chest Character: Reports: Non-productive cough Aggravating: Reports: URI Alleviating: Reports: None Associated Signs and Symptoms: Reports: URI, Nasal congestion. Denies: Rapid breathing, Dyspnea, Fever, Chills, Chest pain, Pleuritic chest pain, Wheezing, Hemoptysis, Dizziness, Calf pain, Calf swelling, Edema, Hoarseness, Sinus discomfort, Vomiting, Sore throat, Weight loss, Decreased oral intake, Increased thirst, Increased appetite, Increased urination Related History: Reports: Similar episode History of Healthcare-Acquired Pneumonia: No Related Surgical History: Reports: None Pulmonary Embolism Risk Factors: None Pseudomonas Risk Factors: Reports: None Tuberculosis Risk Factors: Reports: None Status Asthmaticus Risk Factors: Reports: None Home Oxygen Use: No Recent Stress Test: No Recent Echo/LV Function: No Current Antibiotic Use: No Current Asthma Medication Use: No Respiratory Distress: None Inadequate Respiratory Effort: No Dysphagia Present: No Stridor Present: No JVD Present: No Accessory Muscle Use: No Retractions: Not Present Diminished Breath Sounds: No Sinus Tenderness: None Differential Diagnoses: COPD Exacerbation, Pneumonia, Bronchitis Review of Systems - Review Of Systems Constitutional: Reports: Chills, Malaise Eyes: Reports: No symptoms Ears, Nose, Mouth, Throat: Reports: No symptoms Respiratory: Reports: Cough Cardiac: Reports: No symptoms GI: Reports: No symptoms : Reports: No symptoms Musculoskeletal: Reports: No symptoms Skin: Reports: No symptoms Neurological: Reports: No symptoms Endocrine: Reports: No symptoms Hematologic/Lymphatic: Reports: No symptoms All Other Systems: Reviewed and Negative Past Medical History - Past Medical History Previously Healthy: No Endocrine: Reports: Unknown Cardiovascular: Reports: Unknown Respiratory: Reports: Unknown Hematological: Reports: Unknown Gastrointestinal: Reports: Unknown Genitourinary: Reports: Unknown Neuro/Psych: Reports: Unknown Musculoskeletal: Reports: Unknown Cancer: Reports: Unknown Last Menstrual Period: PT HAS HAD A HYSTERECTOMY - Surgical History General Surgical History: Reports: Unknown - Family History Family History: Reports: Unknown - Social History Smoking Status: Former smoker Hx Substance Use: No Alcohol Screening: None - Immunizations Tetanus Shot up to Date: Yes Physical Exam - Physical Exam Appearance: Well-appearing, No pain distress, Well-nourished Eyes: RAVI, EOMI, Conjunctiva clear ENT: Ears normal, Nose normal, Oropharynx normal Respiratory: Airway patent, Breath sounds clear, Breath sounds equal, Respirations nonlabored Cardiovascular: RRR, Pulses normal, No rub, No murmur GI/: Soft, Nontender, No masses, Bowel sounds normal, No Organomegaly Musculoskeletal: Normal strength, ROM intact, No edema, No calf tenderness Skin: Warm, Dry, Normal color Neurological: Sensation intact, Motor intact, Reflexes intact, Cranial nerves intact, Alert, Oriented Psychiatric: Affect appropriate, Mood appropriate Interpretation - Radiology Interpretation Radiology Interpretation By: Radiologist Radiology Results: No acute changes Critical Care Note - Critical Care Note Total Time (mins): 0 Course - Course Hematology/Chemistry: 06/30/18 07:55 06/30/18 07:55 Orders, Labs, Meds: Lab Review 06/30/18 06/30/18 06/30/18 07:00 07:33 07:55 WBC 7.69 RBC 3.80 L Hgb 11.8 L Hct 36.4 L MCV 95.8 MCH 31.1 H MCHC 32.4 RDW Coeff of Nabeel 12.7 Plt Count 332 Immature Gran % (Auto) 0.4 Neut % (Auto) 74.1 Lymph % (Auto) 13.7 [place] % (Auto) 8.8 Eos % (Auto) 2.2 Baso % (Auto) 0.8 Immature Gran # (Auto) 0.0 Neut # (Auto) 5.7 Lymph # (Auto) 1.1 [place] # (Auto) 0.7 Eos # (Auto) 0.2 Baso # (Auto) 0.1 Puncture Site R rad O2 Saturation 93.0 L ABG pH 7.419 ABG pCO2 39.0 ABG pO2 64.0 L ABG HCO3 25.2 ABG Total CO2 26 ABG Base Excess 1 Vick Test + O2 Delivery Device Ra FiO2 % 21.0 Sodium Potassium Chloride Carbon Dioxide Anion Gap BUN Creatinine Estimated GFR (MDRD) BUN/Creatinine Ratio Glucose Calcium Total Bilirubin AST ALT Alkaline Phosphatase Total Protein Albumin Globulin Albumin/Globulin Ratio Influ A Molecular Assay Negative by naat Influ B Molecular Assay Negative by naat 06/30/18 07:55 WBC RBC Hgb Hct MCV MCH MCHC RDW Coeff of Nabeel Plt Count Immature Gran % (Auto) Neut % (Auto) Lymph % (Auto) [place] % (Auto) Eos % (Auto) Baso % (Auto) Immature Gran # (Auto) Neut # (Auto) Lymph # (Auto) [place] # (Auto) Eos # (Auto) Baso # (Auto) Puncture Site O2 Saturation ABG pH ABG pCO2 ABG pO2 ABG HCO3 ABG Total CO2 ABG Base Excess Vick Test O2 Delivery Device FiO2 % Sodium 143.6 Potassium 3.43 L Chloride 102.7 Carbon Dioxide 32.0 H Anion Gap 12.33 BUN 11.1 Creatinine 0.69 Estimated GFR (MDRD) 86.00 BUN/Creatinine Ratio 16.08 Glucose 108.1 H Calcium 9.40 Total Bilirubin 0.67 AST 54.1 H ALT 60.3 H Alkaline Phosphatase 122.8 Total Protein 7.90 Albumin 4.08 Globulin 3.82 Albumin/Globulin Ratio 1.06 Influ A Molecular Assay Influ B Molecular Assay Orders Category Date Time Status ABG DRAW REQUEST Stat CARDIO 06/30/18 07:33 Completed ABG Stat LAB 06/30/18 07:33 Completed CBC W/ AUTO DIFF Stat LAB 06/30/18 07:55 Completed COMPREHENSIVE METABOLIC PANEL Stat LAB 06/30/18 07:55 Completed FLU A/B MOLECULAR Stat LAB 06/30/18 07:00 Completed RAPID STREP SCREEN [MOLECULAR GROUP A STREP] Stat LAB 06/30/18 07:[address] CHEST W/O CONTRAST Stat RADS 06/30/18 07:36 Completed Vital Signs: Temp Pulse Resp BP Pulse Ox 06/30/18 06:43 98.4 F 90 24 154/87 H 93 L Departure - Departure Time of Disposition: 10:01 Disposition: HOME SELF-CARE Discharge Problem: Cough, Bronchitis Instructions: Acute Bronchitis (ED), Bronchospasm (ED), Wheezing (ED), How Your Lungs Work (ED) Condition: Pt referred to PMD for follow-up: No IPMP verified?: No Allergies/Adverse Reactions: Allergies No Known Allergies Allergy (Verified 06/30/18 06:55) Home Medications: Ambulatory Orders Escitalopram Oxalate 1 tab PO DAILY 07/24/17 Hydrocodone Bit/Acetaminophen [Lortab 7.5-500] 1 tab PO BID 07/24/17 Simvastatin 40 mg PO DAILY 07/24/17 Prednisone 10 mg PO DAILYWM #5 tablet 07/27/17
== END 2018-06-30 10:13 | disposition home or self-care (01) ==
LOC: ED 06:43
DX: J40 Bronchitis, not specified as acute or chronic (principal); R91.8 Other nonspecific abnormal finding of lung field
CPT/HCPCS: 36415; 80053; 82803; 85025; 87502; 87651; 99283

== ENCOUNTER 2018-09-29 11:17 | Outpatient (CLI) ==
[2018-09-29 11:15] VITALS: BMI 22.8
== END 2018-09-29 11:18 | disposition home or self-care (01) ==
LOC: LAB 11:17
PROVIDERS: ATTEND Nurse Practitioner Family
DX: Z00.00 Encounter for general adult medical examination without abnormal findings (principal); M25.50 Pain in unspecified joint
CPT/HCPCS: 36415; 80053; 80061; 84443; 85025; 85651; 86038; 86430

== ENCOUNTER 2018-10-04 09:10 | Outpatient (CLI) ==
--- NOTE | 2018-10-04 10:24 | MAMMO ---
EXAM: Bilateral digital screening mammogram (2-D and 3-D) History: Screening Comparison: Bilateral mammogram 08/19/2011 Findings: MLO and CC views of bilateral breasts demonstrate scattered fibroglandular breast parenchy ma. CAD was reviewed by the radiologist. Tomosynthesis was performed. There are no dominant masses , no suspicious microcalcifications and no architectural distortions. Stable benign bilateral breast calcifications. Impression: Benign stable mammogram. Recommend followup routine screening mammography in 1 year. BI-RADS 2, benign
== END 2018-10-04 09:11 | disposition home or self-care (01) ==
LOC: RAD 09:10
PROVIDERS: ATTEND Nurse Practitioner Family
DX: Z12.31 Encounter for screening mammogram for malignant neoplasm of breast (principal)